=== PATIENT | male | born 1965 | race Two or more races ===

== ENCOUNTER 2016-09-13 12:15 | Emergency (ER) | payer OTHER ==
[~2016-09-13 12:15] MED LIST: UNK MEDS
== END 2016-09-13 16:35 | disposition left against medical advice (07) ==
LOC: ER 15:49
DX: M79.643 Pain in unspecified hand (principal); Z53.21 Procedure and treatment not carried out due to patient leaving prior to being seen by health care provider

== ENCOUNTER 2016-09-14 16:28 | Inpatient (IN) | payer OTHER ==
[~2016-09-14] VITALS: Ht 167.6 cm; Wt 84.4 kg
[2016-09-14] MEDS ORDERED: PIPERACILLIN/TAZ 3.375G PREMIX 50 ML IV ONE (21:00)
[2016-09-14] MEDS ORDERED: VANCOMYCIN 1 G PREMIX 200 ML IV ONE (21:00)
[2016-09-14] MEDS ORDERED: SODIUM CHLORIDE 0.9% 1000ML BAG (SEPSIS BOLUS) IV ONE (21:15)
[2016-09-14 22:09] LABS: BASOPHILS % 0.8 % (0.0-2.0); EOSINOPHILS % 0.6 % (0.0-5.0); HEMATOCRIT. 43.4 % (42.0-52.0); HEMOGLOBIN. 15.3 g/dL (14.0-18.0); LYMPHOCYTES % 41.9 % (20.0-50.0); MEAN CORPUSCULAR HEMOGLOBIN 31.9 pg (28.0-32.0); MEAN CORPUSCULAR HGB CONC 35.2 g/dL (31.0-37.0); MEAN CORPUSCULAR VOLUME 90.9 fL (80.0-94.0); MEAN PLATELET VOLUME 8.5 fl (7.4-10.4); NEUTROPHILS % 47.7 % (40.0-76.0); PLATELET 135 x1000/uL (130-400); RED BLOOD CELL COUNT 4.78 mill/uL (4.7-6.1); RED CELL DISTRIBUTION WIDTH 12.7 % (11.6-14.6); WHITE BLOOD COUNT 6.6 x1000/uL (4.5-11.0)
[2016-09-14 22:13] LABS: CHLORIDE 102 mEq/L (98-107); INDEX HEMOLYSI 4 (1-3); INDEX ICTERIC 2 (1-4); INDEX LIPEMIC 2 (1-3)
[2016-09-14 22:18] LABS: ALBUMIN 3.7 g/dL (3.4-5.0); ANION GAP 14; CALCIUM 8.6 mg/dL (8.5-10.1); CARBON DIOXIDE 26 mEq/L (21-32); UREA NITROGEN BLOOD 18 mg/dL (7-21)
[2016-09-14 22:22] LABS: eGFR > 60 mL/min (>60)
[2016-09-14 22:36] LABS: ALANINE AMINOTRANSFERASE 52 IU/L (13-61)
[2016-09-14] MEDS ORDERED: KETOROLAC 30MG/ML VIAL IV ONE (23:15)
[2016-09-15] MEDS ORDERED: ACETAMINOPHEN 325MG TABLET PO PRN
[2016-09-15] MEDS ORDERED: CLONIDINE 0.1MG TABLET PO PRN
[2016-09-15] MEDS ORDERED: LORAZEPAM 2MG/ML CPJ IV PRN
[2016-09-15] MEDS ORDERED: HYDROCODONE/ACETAMINOPHEN 5/325MG TABLET PO PRN
[2016-09-15] MEDS ORDERED: MAGNESIUM/ALUMINUM HYDROXIDE/SIMETHICONE 30ML UDC PO PRN
[2016-09-15] MEDS ORDERED: GUAIFENESIN 200MG/10ML SUGAR FREE UDC PO PRN
[2016-09-15] MEDS ORDERED: DIPHENHYDRAMINE 50MG/ML VIAL IV PRN
[2016-09-15] MEDS ORDERED: HYDROMORPHONE HCL/PF 2MG/ML CPJ IV PRN
[2016-09-15] MEDS ORDERED: ONDANSETRON HCL 4MG/2ML VIAL IV PRN
[2016-09-15] MEDS ORDERED: DOCUSATE SODIUM 100MG CAPSULE PO PRN
[2016-09-15] MEDS ORDERED: NA PHOS,M-B/NA PHOS,DI-BA ENEMA 118ML PR PRN
[2016-09-15 00:57] LABS: CHLORIDE 106 mEq/L (98-107); INDEX HEMOLYSI 3 (1-3); INDEX ICTERIC 2 (1-4); INDEX LIPEMIC 2 (1-3)
[2016-09-15 01:03] LABS: ANION GAP 16; CALCIUM 7.4 mg/dL (8.5-10.1); CARBON DIOXIDE 20 mEq/L (21-32); UREA NITROGEN BLOOD 14 mg/dL (7-21); eGFR > 60 mL/min (>60)
[2016-09-15 02:55] VITALS: BP 139/100
[2016-09-15 03:00] VITALS: BP 139/100
[2016-09-15] MEDS ORDERED: LISI-604 PO (03:14)
[2016-09-15] MEDS ORDERED: DEXT 5%/0.45% NACL KCL 10MEQ/L 1,000 ML IV SCH ×2 (05:00)
[2016-09-15] MEDS ORDERED: IPRATROPIUM/ALBUTEROL 0.5-3(2.5)MG/3ML NEB INH SCH (06:00)
[2016-09-15] MEDS ORDERED: VANCOMYCIN 1 G PREMIX 200 ML IV SCH (06:00)
[2016-09-15] MEDS ORDERED: PIPERACILLIN/TAZ 3.375G PREMIX 50 ML IV SCH (06:00)
[2016-09-15 06:29] LABS: BASOPHILS % 0.8 % (0.0-2.0); EOSINOPHILS % 0.8 % (0.0-5.0); HEMATOCRIT. 38.5 % (42.0-52.0); HEMOGLOBIN. 13.6 g/dL (14.0-18.0); LYMPHOCYTES % 50.1 % (20.0-50.0); MEAN CORPUSCULAR HGB CONC 35.3 g/dL (31.0-37.0); MEAN CORPUSCULAR VOLUME 90.5 fL (80.0-94.0); MEAN PLATELET VOLUME 8.4 fl (7.4-10.4); MONOCYTES % 10.4 % (2.0-8.0); NEUTROPHILS % 37.9 % (40.0-76.0); PLATELET 116 x1000/uL (130-400); RED BLOOD CELL COUNT 4.26 mill/uL (4.7-6.1); RED CELL DISTRIBUTION WIDTH 13.1 % (11.6-14.6)
[2016-09-15] MEDS ORDERED: TRAMADOL 50MG TABLET PO PRN (06:30)
[2016-09-15] MEDS ORDERED: DEXTROSE 50% WATER 50ML SYRINGE IV PRN (06:30)
[2016-09-15 07:14] LABS: ALBUMIN 3.3 g/dL (3.4-5.0); ANION GAP 15; CALCIUM 8.2 mg/dL (8.5-10.1); CARBON DIOXIDE 22 mEq/L (21-32); CHLORIDE 104 mEq/L (98-107); INDEX HEMOLYSI 3 (1-3); INDEX ICTERIC 1 (1-4); INDEX LIPEMIC 2 (1-3); UREA NITROGEN BLOOD 12 mg/dL (7-21)
[2016-09-15] MEDS ORDERED: BLOOD SUGAR DIAGNOSTIC STRIP TEST SCH (07:20)
[2016-09-15 07:29] LABS: ALANINE AMINOTRANSFERASE 44 IU/L (13-61); HDL CHOLESTEROL 25 mg/dL (40-59); LDL CHOLESTEROL 63 mg/dL (5-100); eGFR > 60 mL/min (>60)
[2016-09-15 07:36] LABS: TRIGLYCERIDE 1431 mg/dL (0-150)
[2016-09-15] MEDS ORDERED: INSULIN LISPRO 100 UNITS/ML SUBCUT SCH (07:50)
[2016-09-15 08:00] VITALS: BP 137/98
[2016-09-15] MEDS ORDERED: PATIENT OWN MED PO SCH (09:00)
[2016-09-15] MEDS ORDERED: ENOXAPARIN 40MG/0.4ML SYR SUBCUT SCH (09:00)
[2016-09-15] MEDS ORDERED: LISINOPRIL 20MG TABLET PO SCH (09:00)
[2016-09-15] MEDS ORDERED: ASPIRIN 81MG EC TABLET PO SCH (09:00)
[2016-09-15] MEDS ORDERED: POTASSIUM CHLORIDE 20MEQ TABLET SR PO NR (09:15)
[2016-09-15 11:01] VITALS: BP 137/98
[2016-09-15] MEDS ORDERED: ODEFSEY PO SCH (21:00)
== END 2016-09-15 11:15 | disposition home or self-care (01) | DRG 383 ==
LOC: ER 20:46 → 6EST 23:44
PROVIDERS: ADMIT Internal Medicine; ATTEND Internal Medicine
DX: L03.113 Cellulitis of right upper limb (principal); R65.10 Systemic inflammatory response syndrome (SIRS) of non-infectious origin without acute organ dysfunction; I10 Essential (primary) hypertension; E11.9 Type 2 diabetes mellitus without complications; E78.00 Pure hypercholesterolemia, unspecified; E78.5 Hyperlipidemia, unspecified; F17.200 Nicotine dependence, unspecified, uncomplicated; E86.0 Dehydration; Z87.442 Personal history of urinary calculi
CPT/HCPCS: 36415; 73130; 80048; 80053; 80061; 82962; 83605; 85025; 85610; 87040; 94664; 96365; 96375; 99285; J1650; J1815; J1885; J2543; J3370; J7030; J7040

== ENCOUNTER 2017-06-22 22:45 | Emergency (ER) | payer OTHER ==
[~2017-06-22] VITALS: Ht 167.6 cm; Wt 84.0 kg
[~2017-06-22 22:45] MED LIST changes: +LISI-604 PO; -UNK MEDS
[2017-06-23 02:00] VITALS: BP 138/88
== END 2017-06-23 02:50 | disposition home or self-care (01) ==
LOC: ER 22:45
DX: S01.312A Laceration without foreign body of left ear, initial encounter (principal); S00.12XA Contusion of left eyelid and periocular area, initial encounter; S00.03XA Contusion of scalp, initial encounter; S10.93XA Contusion of unspecified part of neck, initial encounter; R07.81 Pleurodynia; R55 Syncope and collapse; I10 Essential (primary) hypertension; F17.210 Nicotine dependence, cigarettes, uncomplicated; Z88.5 Allergy status to narcotic agent; Y04.0XXA Assault by unarmed brawl or fight, initial encounter; Y93.89 Activity, other specified; Y92.89 Other specified places as the place of occurrence of the external cause; Y99.8 Other external cause status
CPT/HCPCS: 70150; 71101; 99284

== ENCOUNTER 2018-08-08 04:31 | Emergency (ER) | payer OTHER ==
[~2018-08-08] VITALS: Ht 154.9 cm; Wt 87.0 kg
[2018-08-08 05:42] VITALS: BP 141/96
[2018-08-08 07:13] LABS: CLARITY URINE CLEAR (CLEAR); COLOR URINE YELLOW (YELLOW); KETONES URINE NEGATIVE (NEGATIVE); LEUKOCYTE ESTERASE URINE NEGATIVE (NEGATIVE); NITRITE URINE NEGATIVE (NEGATIVE); OCCULT BLOOD URINE NEGATIVE (NEGATIVE); PROTEIN URINE NEGATIVE (NEGATIVE); SPECIFIC GRAVITY URINE 1.007 (1.005-1.030); UROBILINOGEN URINE 0.2 E.U./dL (0.2-1.0)
[2018-08-08 07:40] LABS: *AMPHETAMINES SCREEN URINE NEGATIVE (NEGATIVE); *BARBITURATES SCREEN URINE NEGATIVE (NEGATIVE); *BENZODIAZEPINES SCREEN URINE NEGATIVE (NEGATIVE); *COCAINE SCREEN URINE NEGATIVE (NEGATIVE); METHADONE URINE SCREEN NEGATIVE (NEGATIVE); OPIATES URINE SCREEN NEGATIVE (NEGATIVE)
[2018-08-08 07:41] LABS: CANNABINOID URINE SCREEN NEGATIVE (NEGATIVE); PHENCYCLIDINE URINE SCREEN NEGATIVE (NEGATIVE)
== END 2018-08-08 06:37 | disposition left against medical advice (07) ==
LOC: ER 04:31
DX: R53.1 Weakness (principal); I10 Essential (primary) hypertension; F17.210 Nicotine dependence, cigarettes, uncomplicated; Z88.5 Allergy status to narcotic agent
CPT/HCPCS: 80305; 99283

== ENCOUNTER 2019-03-28 23:37 | Emergency (ER) | payer OTHER ==
[~2019-03-28] VITALS: Ht 172.7 cm; Wt 104.0 kg
[2019-03-29 00:59] VITALS: BP 134/91
== END 2019-03-29 01:16 | disposition left against medical advice (07) ==
LOC: ER 23:37
DX: Z53.21 Procedure and treatment not carried out due to patient leaving prior to being seen by health care provider (principal); I10 Essential (primary) hypertension
CPT/HCPCS: 99283

== ENCOUNTER 2019-08-18 00:28 | Emergency (ER) | payer OTHER | END 2019-08-18 01:00 | disposition left against medical advice (07) | LOC: ER 00:28 | DX: R10.9 Unspecified abdominal pain (principal); Z53.21 Procedure and treatment not carried out due to patient leaving prior to being seen by health care provider ==

== ENCOUNTER 2019-10-01 23:49 | Emergency (ER) | payer OTHER ==
[~2019-10-01] VITALS: Ht 180.3 cm; Wt 91.0 kg
[2019-10-02 01:13] LABS: CHLORIDE 100 mEq/L (98-107)
[2019-10-02 01:21] LABS: BASOPHILS % 0.5 % (0.0-2.0); EOSINOPHILS % 0.4 % (0.0-5.0); HEMATOCRIT. 43.7 % (42.0-52.0); HEMOGLOBIN. 15.8 g/dL (14.0-18.0); LYMPHOCYTES % 47.2 % (20.0-50.0); MEAN CORPUSCULAR HEMOGLOBIN 33.4 pg (28.0-32.0); MEAN CORPUSCULAR VOLUME 92.6 fL (80.0-94.0); MEAN PLATELET VOLUME 8.5 fl (7.4-10.4); MONOCYTES % 3.7 % (2.0-8.0); NEUTROPHILS % 48.2 % (40.0-76.0); PLATELET 134 x1000/uL (130-400); RED BLOOD CELL COUNT 4.72 mill/uL (4.7-6.1); RED CELL DISTRIBUTION WIDTH 12.7 % (11.6-14.6)
[2019-10-02] MEDS ORDERED: POTASSIUM CHLORIDE 20MEQ TABLET SR PO ONE (01:45)
[2019-10-02] MEDS ORDERED: KETOROLAC 15MG/ML VIAL IV ONE (02:00)
[2019-10-02 02:05] LABS: CLARITY URINE CLEAR (CLEAR); COLOR URINE YELLOW (YELLOW); KETONES URINE NEGATIVE (NEGATIVE); LEUKOCYTE ESTERASE URINE NEGATIVE (NEGATIVE); NITRITE URINE NEGATIVE (NEGATIVE); OCCULT BLOOD URINE NEGATIVE (NEGATIVE); PH URINE 6.5 (4.5-8.0); PROTEIN URINE NEGATIVE (NEGATIVE); SPECIFIC GRAVITY URINE 1.012 (1.005-1.030); UROBILINOGEN URINE 0.2 E.U./dL (0.2-1.0)
[2019-10-02] MEDS ORDERED: SODIUM CHLORIDE 0.9% 1,000 ML IV ONE (02:39)
[2019-10-02 03:00] VITALS: BP 156/80
== END 2019-10-02 03:00 | disposition home or self-care (01) ==
LOC: ER 23:49
DX: R10.2 Pelvic and perineal pain (principal); K40.90 Unilateral inguinal hernia, without obstruction or gangrene, not specified as recurrent; E11.9 Type 2 diabetes mellitus without complications; I10 Essential (primary) hypertension
CPT/HCPCS: 36415; 74176; 76870; 80053; 81003; 83690; 85025; 93976; 96374; 99285; J1885; J7030

== ENCOUNTER 2019-11-29 02:16 | Emergency (ER) | payer OTHER ==
[~2019-11-29] VITALS: Ht 165.1 cm; Wt 83.0 kg
[2019-11-29 02:25] VITALS: BP 154/70
[2019-11-29] MEDS ORDERED: ONDANSETRON 4MG ODT PO STA (04:08)
[2019-11-29] MEDS ORDERED: ACETAMINOPHEN 325MG TABLET PO STA (04:08)
== END 2019-11-29 04:42 | disposition home or self-care (01) ==
LOC: ER 02:16
DX: R10.9 Unspecified abdominal pain (principal); E11.9 Type 2 diabetes mellitus without complications; I10 Essential (primary) hypertension; B20 Human immunodeficiency virus [HIV] disease
CPT/HCPCS: 99283

== ENCOUNTER 2020-07-08 02:55 | Emergency (ER) | payer OTHER ==
[~2020-07-08] VITALS: Ht 162.6 cm; Wt 69.0 kg
[2020-07-08 03:07] VITALS: BP 148/96
== END 2020-07-08 03:53 | disposition home or self-care (01) ==
LOC: ER 02:55
DX: J98.01 Acute bronchospasm (principal); E11.9 Type 2 diabetes mellitus without complications; I10 Essential (primary) hypertension; Z79.01 Long term (current) use of anticoagulants
CPT/HCPCS: 99283

== ENCOUNTER 2020-07-19 12:18 | Emergency (ER) | payer OTHER ==
[~2020-07-19] VITALS: Ht 167.6 cm; Wt 75.0 kg
[~2020-07-19 12:18] MED LIST changes: -LISI-604 PO; +LISI20TA31 PO
[2020-07-19 13:30] VITALS: BP 120/56
[2020-07-19] MEDS ORDERED: SODIUM CHLORIDE 0.9% 1,000 ML IV ONE (14:00)
[2020-07-19 14:12] LABS: BASOPHILS % 0.4 % (0.0-2.0); HEMATOCRIT. 42.1 % (42.0-52.0); HEMOGLOBIN. 15.1 g/dL (14.0-18.0); LYMPHOCYTES % 29.6 % (20.0-50.0); MEAN CORPUSCULAR HEMOGLOBIN 32.7 pg (28.0-32.0); MEAN CORPUSCULAR VOLUME 91.3 fL (80.0-94.0); MONOCYTES % 6.4 % (2.0-8.0); NEUTROPHILS % 63.6 % (40.0-76.0); PLATELET 122 x1000/uL (130-400); RED BLOOD CELL COUNT 4.61 mill/uL (4.7-6.1); RED CELL DISTRIBUTION WIDTH 13.5 % (11.6-14.6)
[2020-07-19 14:13] LABS: CHLORIDE 97 mEq/L (98-107)
[2020-07-19 14:19] LABS: PROTHROMBIN TIME 10.9 sec (9.6-11.0)
[2020-07-19] MEDS ORDERED: POTASSIUM CHLORIDE 20MEQ TABLET SR PO NR (15:00)
[2020-07-19 16:38] LABS: CLARITY URINE CLEAR (CLEAR); COLOR URINE YELLOW (YELLOW); KETONES URINE NEGATIVE (NEGATIVE); LEUKOCYTE ESTERASE URINE NEGATIVE (NEGATIVE); NITRITE URINE NEGATIVE (NEGATIVE); OCCULT BLOOD URINE NEGATIVE (NEGATIVE); PROTEIN URINE NEGATIVE (NEGATIVE); SPECIFIC GRAVITY URINE 1.014 (1.005-1.030); UROBILINOGEN URINE 0.2 E.U./dL (0.2-1.0)
== END 2020-07-19 15:16 | disposition left against medical advice (07) ==
LOC: ER 12:24 → CANBEDREQ 16:47
DX: E87.8 Other disorders of electrolyte and fluid balance, not elsewhere classified (principal); E87.2 Acidosis; E87.6 Hypokalemia; E11.9 Type 2 diabetes mellitus without complications; I10 Essential (primary) hypertension
CPT/HCPCS: 36415; 71045; 80053; 81003; 82962; 83605; 84145; 85025; 85610; 93005; 96360; 99285; J7030

== ENCOUNTER 2020-08-22 05:49 | Emergency (ER) | payer OTHER ==
[~2020-08-22] VITALS: Ht 165.1 cm; Wt 73.0 kg
[2020-08-22 06:21] VITALS: BP 172/108
[2020-08-22] MEDS ORDERED: LISI20TA31 MT (06:22)
== END 2020-08-22 06:32 | disposition home or self-care (01) ==
LOC: ER 06:16
DX: I10 Essential (primary) hypertension (principal); Z76.0 Encounter for issue of repeat prescription; E11.9 Type 2 diabetes mellitus without complications; B20 Human immunodeficiency virus [HIV] disease
CPT/HCPCS: 93005; 99283

== ENCOUNTER 2021-04-16 00:33 | Emergency (ER) | payer OTHER ==
[~2021-04-16] VITALS: Ht 165.1 cm; Wt 67.0 kg
[~2021-04-16 00:33] MED LIST changes: +LISI20TA31 MT
[2021-04-16 00:39] VITALS: BP 149/97
== END 2021-04-16 02:13 | disposition left against medical advice (07) ==
LOC: ER 00:33
DX: Z53.21 Procedure and treatment not carried out due to patient leaving prior to being seen by health care provider (principal)

== ENCOUNTER 2021-07-21 22:07 | Emergency (ER) | payer OTHER ==
[~2021-07-21] VITALS: Ht 172.7 cm; Wt 67.0 kg
[2021-07-21 22:09] VITALS: BP 131/85
== END 2021-07-21 23:05 | disposition left against medical advice (07) ==
LOC: ER 22:07
DX: Z53.21 Procedure and treatment not carried out due to patient leaving prior to being seen by health care provider (principal)

== ENCOUNTER 2021-09-04 16:09 | Emergency (ER) | payer OTHER ==
[~2021-09-04] VITALS: Ht 175.3 cm; Wt 80.0 kg
[2021-09-04 16:20] VITALS: BP 126/83
== END 2021-09-04 17:59 | disposition left against medical advice (07) ==
LOC: ER 16:21
DX: Z53.21 Procedure and treatment not carried out due to patient leaving prior to being seen by health care provider (principal); F10.129 Alcohol abuse with intoxication, unspecified; E11.9 Type 2 diabetes mellitus without complications; B20 Human immunodeficiency virus [HIV] disease; I10 Essential (primary) hypertension; Y90.9 Presence of alcohol in blood, level not specified; Z88.6 Allergy status to analgesic agent
CPT/HCPCS: 99283